=== PATIENT | male | born 1980 | race African-American/Black ===

== ENCOUNTER 2017-09-04 00:29 | Emergency (ER) | payer OTHER ==
[~2017-09-04] VITALS: Ht 188 cm; Wt 102.0 kg
[2017-09-04] MEDS ORDERED: TETANUS, DIPHTHERIA, PERTUSSIS VAC/PF 0.5ML (>7YR OLD) IM ONE (02:15)
[2017-09-04] MEDS ORDERED: ACETAMINOPHEN WITH CODEINE 300/30MG TABLET PO ONE (02:15)
[2017-09-04] MEDS ORDERED: BACITRACIN ZINC OINT UDPKT TOP ONE (04:00)
[2017-09-04] MEDS ORDERED: LIDOCAINE HCL 1% 20ML VIAL (Pyxis) INJ MC ONE (04:00)
[2017-09-04] MEDS ORDERED: CEFTRIAXONE 1 G PREMIX 50 ML IV ONE (04:30)
[2017-09-04] MEDS ORDERED: KETOROLAC 30MG/ML VIAL IV ONE (04:30)
[2017-09-04 05:33] VITALS: BP 128/71
== END 2017-09-04 06:39 | disposition home or self-care (01) ==
LOC: ER 00:29
DX: S01.81XA Laceration without foreign body of other part of head, initial encounter (principal); M25.521 Pain in right elbow; Y08.89XA Assault by other specified means, initial encounter; Y93.89 Activity, other specified; Y92.89 Other specified places as the place of occurrence of the external cause; Y99.8 Other external cause status
CPT/HCPCS: 12011; 70450; 70486; 73080; 90471; 90715; 96365; 96375; 99291; J0696; J1885; J3490; Z7610; A4565